=== PATIENT | female | born 1955 | race Caucasian/White ===

== ENCOUNTER → 2016-10-21 | Outpatient (CLI) | payer OTHER ==
[~2016-10-21] MED LIST: 5 HTP PO; GABA PO; MULTIVITAMIN FO1 CAP PO; NASONEX SPRAY NAS; SINGULAIR10 MG PO; VITAMIN B-150 MG PO; ZOLOFT 100MG100 MG PO
== END ==
LOC: MC.RAD 09-28 15:00
DX: Z12.31 Encounter for screening mammogram for malignant neoplasm of breast (principal)

== ENCOUNTER → 2017-11-16 | Outpatient (CLI) | payer BC | LOC: MC.RAD 09:32 | DX: Z12.31 Encounter for screening mammogram for malignant neoplasm of breast (principal) ==

== ENCOUNTER → 2017-11-21 | Outpatient (CLI) | payer BC | LOC: MC.RAD 12:36 | DX: N64.89 Other specified disorders of breast (principal) ==

== ENCOUNTER → 2018-09-17 | Outpatient (CLI) | payer BC | LOC: COL.RAD 10:12 | DX: D25.9 Leiomyoma of uterus, unspecified (principal); N85.2 Hypertrophy of uterus ==

== ENCOUNTER → 2020-10-08 | Outpatient (CLI) | payer BC | LOC: MC.RAD 10:54 | DX: Z12.31 Encounter for screening mammogram for malignant neoplasm of breast (principal) ==

== ENCOUNTER → 2021-11-09 | Outpatient (CLI) | payer BC ==
[~2021-11-09] MED LIST changes: +5-HTP100 MG PO; +BORON PO; +CRANRX500 MG PO; +HAIRSKINNAILS PO; +K2-4545 MCG PO; +LITHIUM CA150 MG/CAP PO; +LYSINE 500500 MG/TAB PO; +MASON NATURAL S1 CAP PO; +MELATIN 3 MG-11 TAB PO; +MOTRIN 800800 MG/TAB PO; +PERCOCET 325 MG1 TA2 PO; +TIROSINT50 MC1 PO; +ZOLOFT 50MG50 MG PO; +[UNRECOGNIZED DRUG - OTHER] PO
== END ==
LOC: MC.RAD 08:56
DX: Z12.31 Encounter for screening mammogram for malignant neoplasm of breast (principal); R91.8 Other nonspecific abnormal finding of lung field

== ENCOUNTER → 2021-11-11 | Outpatient (CLI) | payer BC | LOC: MC.RAD 07:55 | DX: R92.8 Other abnormal and inconclusive findings on diagnostic imaging of breast (principal); N64.89 Other specified disorders of breast ==

== ENCOUNTER → 2024-01-03 | Outpatient (CLI) | payer BC | LOC: MC.RAD 07:20 | DX: Z12.31 Encounter for screening mammogram for malignant neoplasm of breast (principal) ==